=== PATIENT | female | born 1970 | race Caucasian/White ===

== ENCOUNTER → 2020-05-02 10:44 | Outpatient (BNVA) | payer OTHER, SELFPAY | PROVIDERS: Family Provider General Practice; Visit Provider Registered Nurse | DX: F32.9 Major depressive disorder, single episode, unspecified (principal); M19.041 Primary osteoarthritis, right hand; N60.01 Solitary cyst of right breast; I10 Essential (primary) hypertension | CPT/HCPCS: 80053; 86140 ==

== ENCOUNTER 2020-05-18 08:53 | Outpatient (CLI) | payer OTHER, SELFPAY ==
--- NOTE | 2020-05-18 11:00 | MM_ITS ---
WS: [id number] BILATERAL DIGITAL DIAGNOSTIC MAMMOGRAM MAMMOGRAPHY WITH CAD CLINICAL INFORMATION: cyst in right breast History of right breast cyst. Left breast soreness COMPARISON: April 30, 2018 TECHNIQUE: Bilateral CC, MLO, and ML views. FINDINGS: Scattered fibroglandular densities bilaterally. Stable asymmetric breast tissue upper outer right ramirez ast. No suspicious focal mass, asymmetry, calcifications, or architectural distortion. No evidence of laura gnancy. MM/[place] [id number] IMPRESSION: BI-RADS: 1-Negative FOLLOW UP: 1 Year Follow-up Recommend return to annual diagnostic mammography.
== END 2020-05-18 08:54 | disposition home or self-care (01) ==
PROVIDERS: PCP Registered Nurse; Visit Provider Registered Nurse
DX: N60.01 Solitary cyst of right breast (principal)
CPT/HCPCS: 77066

== ENCOUNTER 2020-07-22 11:06 | Emergency (ER) | payer OTHER, SELFPAY ==
[2020-07-22 11:11] VITALS: BP 119/76; PULSE 49; RESP 16; TEMP 36.8; O2SAT 95; BMI 26.5
--- NOTE | 2020-07-22 11:25 | W.ED.GENADLT ---
HPI - General Adult General: Chief complaint: Needlestick/Injury/Exposure Stated complaint: NEEDLE STICK Time Seen by Provider: 07/22/20 11:22 Source: patient Mode of arrival: ambulatory Limitations: no limitations History of Present Illness: HPI narrative: Patient is a 49-year-old female here for complaints of a needlestick injury to her left index finger that she sustained after drawing a patient. Patient is an [employer] employee. Onset (ago): minute(s) Location: upper extremity Review of Systems Musc: Reports: other (Puncture wound to left index finger) Skin/Breast: Denies: erythema Neuro: Denies: numbness in extremities or sensory changes PFS ED PFSH: Medical History (Updated 07/22/20 @ 12:09 by ILYA Castellano) Depression Essential hypertension Family History Mother Hypertension Lung disease CHF (congestive heart failure) Social History (Updated 07/22/20 @ 11:[address] RN) Smoking and tobacco status: current every day smoker cigarettes Packs smoked per day: 0.5 Alcohol intake: never Adopted: No Caregiver/support person: No Lives independently: No Household members: family service: No Current occupational status: employed History of recent travel: No Sexually active: Yes Current gender identity: Female Physical Exam Const: COMMON NORMALS: no acute distress and no limitations Extremity: OTHER: Small puncture wound to left index finger. No redness or swelling or drainage noted. Course Vital Signs: Vital signs: Vital Signs Temperature 98.1 F 07/22/20 12:26 Pulse Rate 52 L 07/22/20 12:26 Respiratory Rate 16 07/22/20 12:26 Blood Pressure 152/90 07/22/20 12:26 Pulse Oximetry 96 07/22/20 12:26 MDM - General Adult MDM Narrative: Medical decision making narrative: Patient's tetanus will be updated. She will have employee exposure labs drawn. Source patient has been identified and will be drawn as well. She does not wish to begin postexposure prophylaxis for HIV at this time. Patient will follow-up with Worker's Comp. Discharge Plan Discharge Patient Disposition: Home Clinical Impression: Needlestick injury accident Condition: Stable Prescriptions: No Action albuterol sulfate [ProAir HFA] 90 mcg/actuation HFA aerosol inhaler 2 puff INHALATION Q6H PRN (Reason: Shortness Of Breath) RF: 0 Joint Support Complex [id number] mg capsule 1 cap PO DAILY RF: 0 cholecalciferol (vitamin D3) 50 mcg (2,000 unit) capsule 50 mcg PO DAILY RF: 0 amlodipine 5 mg tablet 5 mg PO DAILY Qty: 90 RF: 0 metoprolol tartrate 100 mg tablet 100 mg PO BID 90 Days Qty: 180 RF: 0 sertraline [Zoloft] 100 mg tablet 100 mg PO DAILY Qty: 90 RF: 1 celecoxib [Celebrex] 100 mg capsule 100 mg PO BID 90 Days Qty: 180 RF: 0 ibuprofen 200 mg Tablet 800 mg PO PRN RF: 0 Discharge Orders: Discharge Order (Routine); Ordered 07/22/20 Ordered By: Linda Skinner Referrals: Toño Lamb FNP [Primary Care Provider] - Patient Instructions: Blood/Body Fluid Exposure - Occupational, Needle Stick Injuries (ED) Activity Restrictions/Additional Instructions: As discussed, please follow up with Worker's Comp as directed. Discharge Date/Time: 07/22/20 12:31 Coding Level of Care Code ED Apartment Community Manager for [facility] Fwd Exam Problem Focused
[2020-07-22] MEDS: tetanus-dipt-pertussis 0.5 mL SDV IM (12:19)
[2020-07-22 12:21] VITALS: RESP 16
[2020-07-22 12:26] VITALS: BP 152/90; PULSE 52; RESP 16; TEMP 36.7; O2SAT 96
== END 2020-07-22 12:31 | disposition home or self-care (01) ==
PROVIDERS: Emergency Provider Physician Assistant; PCP Registered Nurse
DX: S61.231A Puncture wound without foreign body of left index finger without damage to nail, initial encounter (principal); W46.0XXA Contact with hypodermic needle, initial encounter; Y92.239 Unspecified place in hospital as the place of occurrence of the external cause; Y99.0 Civilian activity done for income or pay; Z23 Encounter for immunization
CPT/HCPCS: 12345; 90471; 90715; 99281; 99282

== ENCOUNTER → 2020-08-20 17:02 | Outpatient (BNVA) | payer OTHER, SELFPAY | PROVIDERS: PCP Registered Nurse; Visit Provider Nurse Practitioner | DX: R07.1 Chest pain on breathing (principal) | CPT/HCPCS: 71046 ==